=== PATIENT | male | born 1965 | race Caucasian/White ===

== ENCOUNTER 2016-12-06 06:53 | Emergency (ER) | payer OTHER ==
[~2016-12-06] VITALS: Ht 177.8 cm; Wt 76.8 kg
[2016-12-06 07:00] VITALS: TEMP 36.3; Ht 177.8 cm; Wt 76.8 kg
[2016-12-06] MEDS ORDERED: IBUP-1050 PO (07:06)
[2016-12-06] MEDS ORDERED: SODIUM CHLORIDE 0.9% 1000ML 1,000 ML IV STA (07:13)
[2016-12-06] MEDS ORDERED: SODIUM CHLORIDE 0.9% 500ML 500 ML IV STA (07:13)
--- NOTE | 2016-12-06 07:20 | EMERGENCY ROOM VISIT NOTE ---
History Report prepared by Maria Elenaibjulien: Travon Gomez Under the Supervision of: Dr. Maria R Logan M.D. First contact with patient: 07:00 Chief Complaint: FALL Stated Complaint: FALL/SYNCOPE History of Present Illness The patient is a 51 year old male prisoner who presents to the Emergency Room with complaints of a resolved episode of syncope that occurred earlier this morning. The patient states that he hasn't felt well for the past two days. This morning he got up to go to the bathroom. He was standing at the urinal when he passed out and hit his head on the ground. The patient was feeling dizzy prior to the episode, and was not experiencing palpitations. He remembers standing at the urinal, and the next thing he remembers is being on the ground with a guard standing over him. The patient hit the back of his head on the floor. He now complains of nausea. The patient experienced syncope years ago. He denies any recent drug use and is not much of a drinker. The patient is a smoker. He does not have a history of diabetes or heart disease. Source of History: patient Onset: this morning Position: other (global) Quality: other (syncope) Timing: resolved Associated Symptoms: + LOC, + nausea Review of Systems See HPI for pertinent positives & negatives. A total of 10 systems reviewed and were otherwise negative. Past Medical & Surgical Surgical Problems: (1) History of hernia repair Family History Diabetes mellitus FH: heart disease FH: lung disease FHx: cancer Hypertension Seizures Social History Smoking Status: Former Smoker Alcohol Use: none Marital Status: single Housing Status: other Occupation Status: employed Current/Historical Medications Scheduled Ibuprofen (Advil), 200 MG PO DAILY Ondasetron Odt (Zofran Odt), 4 MG SL Q6H Allergies Coded Allergies: Acetaminophen (Verified Adverse Reaction, Mild, nausea/vomiting, 12/06/16) Hydrocodone (Verified Adverse Reaction, Mild, nausea/vomiting, 12/06/16) Physical Exam Vital Signs Date Time Temp Pulse Resp B/P Pulse Ox O2 Delivery O2 Flow Rate FiO2 12/06/16 09:39 68 18 123/62 98 Room Air 12/06/16 09:07 66 12/06/16 08:52 57 18 115/64 96 Room Air 12/06/16 07:18 59 122/74 62 114/67 12/06/16 07:01 56 12/06/16 07:00 36.3 61 18 127/66 96 Room Air Physical Exam Vital signs reviewed. General: Well-appearing male, in no significant distress. Pale. HEENT: 0.5 cm laceration to the left occiput. No scleral icterus, PERRLA. Cervical collar in place. Cardiovascular: Regular rate and rhythm, no extra sounds. Pulmonary: Clear to auscultation bilaterally, normal work of breathing. Abdomen: Soft, nontender, nondistended, positive bowel sounds. Musculoskeletal: Atraumatic, no peripheral edema. Neurologic: Patient awake alert and oriented x 3, full strength in all 4 extremities. Cranial nerves 2 through 12 grossly intact. Skin: Warm, dry, no rash. Pale. Medical Decision & Procedures ER Provider Diagnostic Interpretation: X-ray results as stated below per my interpretation and radiologist interpretation. Other radiology results as stated below per my review and radiologist interpretation: SINGLE VIEW CHEST CLINICAL HISTORY: Fall. Syncope. FINDINGS: An AP, portable, upright chest radiograph is obtained. No prior studies are available for comparison at the time of dictation. The examination is degraded by portable technique and patient rotation. The cardiomediastinal silhouette is unremarkable. The lungs appear hyperinflated and hyperlucent with line the diaphragm suggesting emphysema. Nonspecific interstitial thickening is identified. No airspace consolidation, large pleural effusion, or pneumothorax is seen. The bony thorax is grossly intact. IMPRESSION: Findings suggest obstructive physiology. There is no acute cardiopulmonary abnormality. Electronically signed by: Jerry Sanon M.D. 12/06/2016 7:48 AM Dictated Date/Time: 12/06/2016 7:[address] SCAN OF THE BRAIN WITHOUT IV CONTRAST CLINICAL HISTORY: Head injury. COMPARISON STUDY: No priors. TECHNIQUE: Unenhanced axial CT scan of the brain is performed from the vertex to the skull base. Automated dose control exposure was utilized. FINDINGS: Brain parenchyma: The brain parenchyma is normal in appearance. There is no hemorrhage, mass effect, or evidence of acute territorial ischemia by CT criteria. Gallegos-white matter is preserved. No extra-axial fluid collection is seen. Ventricles, sulci, cisterns: Normal in configuration. Intracranial vasculature: The visualized intracranial vasculature at the skull base is normal in appearance. Calvarium: There is no depressed calvarial fracture. Soft tissues: There is a left posterior parietal scalp contusion. Sinuses and mastoids: There is trace mucosal thickening within the frontal and ethmoid sinuses. The remaining visualized paranasal sinuses are clear. The mastoid air cells are well pneumatized. Orbits: The bony orbits are grossly intact. IMPRESSION: There is no hemorrhage, mass effect, or evidence of acute territorial ischemia by CT criteria. Electronically signed by: Jerry Sanon M.D. 12/06/2016 8:07 AM Dictated Date/Time: 12/06/2016 8:[address] SCAN OF THE CERVICAL SPINE CLINICAL HISTORY: Fall. COMPARISON STUDY: No priors. TECHNIQUE: CT scan of the cervical spine is performed from the skull base to the upper thoracic spine. Images are reviewed in the axial, sagittal, and coronal planes. IV contrast was not administered for this examination. CT DOSE: 1081.80 mGy.cm FINDINGS: Skeletal structures: The skeletal structures are well mineralized. There is no evidence of fracture or subluxation involving the cervical spine. Vertebral body height and alignment are maintained. The odontoid process and lateral masses are intact. The atlantoaxial articulation is preserved. The spinous processes appear intact. Intervertebral discs: The disc spaces are well maintained. Central canal: Widely patent. Soft tissues: The prevertebral and paraspinous soft tissues are within normal limits. Calvarium: The visualized calvarium at the skull base appears intact. Brain parenchyma: Partially visualized brain parenchyma the skull base is within normal limits. Sinuses and mastoids: The visualized paranasal sinuses are clear. The mastoid air cells are well pneumatized. Lung apices: Mild emphysematous change is present at the apices. Apical lung parenchyma is otherwise clear as visualized. IMPRESSION: There is no evidence of fracture or subluxation involving the cervical spine. Electronically signed by: Jerry Sanon M.D. 12/06/2016 8:11 AM Dictated Date/Time: 12/06/2016 8:08 AM Laboratory Results 12/06/16 07:30 Red Blood Count 4.98, Mean Corpuscular Volume 84.7, Mean Corpuscular Hemoglobin 30.5, Mean Corpuscular Hemoglobin Concent 36.0, Mean Platelet Volume 9.7, Neutrophils (%) (Auto) 74.1, Lymphocytes (%) (Auto) 14.4, Monocytes (%) (Auto) 9.3, Eosinophils (%) (Auto) 1.6, Basophils (%) (Auto) 0.3, Neutrophils # (Auto) 7.59, Lymphocytes # (Auto) 1.47, Monocytes # (Auto) 0.95, Eosinophils # (Auto) 0.16, Basophils # (Auto) 0.03 12/06/16 07:30 Test 12/06/16 07:30 12/06/16 07:39 White Blood Count 10.23 K/uL (4.8-10.8) Red Blood Count 4.98 M/uL (4.7-6.1) Hemoglobin 15.2 g/dL (14.0-18.0) Hematocrit 42.2 % (42-52) Mean Corpuscular Volume 84.7 fL (80-100) Mean Corpuscular Hemoglobin 30.5 pg (25-34) Mean Corpuscular Hemoglobin Concent 36.0 g/dl (32-36) Platelet Count 240 K/uL (130-400) Mean Platelet Volume 9.7 fL (7.4-10.4) Neutrophils (%) (Auto) 74.1 % Lymphocytes (%) (Auto) 14.4 % Monocytes (%) (Auto) 9.3 % Eosinophils (%) (Auto) 1.6 % Basophils (%) (Auto) 0.3 % Neutrophils # (Auto) 7.59 K/uL (1.4-6.5) Lymphocytes # (Auto) 1.47 K/uL (1.2-3.4) Monocytes # (Auto) 0.95 K/uL (0.11-0.59) Eosinophils # (Auto) 0.16 K/uL (0-0.5) Basophils # (Auto) 0.03 K/uL (0-0.2) RDW Standard Deviation 37.7 fL (36.4-46.3) RDW Coefficient of Variation 12.3 % (11.5-14.5) Immature Granulocyte % (Auto) 0.3 % Immature Granulocyte # (Auto) 0.03 K/uL (0.00-0.02) Anion Gap 12.0 mmol/L (3-11) Est Creatinine Clear Calc Drug Dose 109.9 ml/min Estimated GFR () 118.9 Estimated GFR (Non- 102.6 BUN/Creatinine Ratio 21.1 (10-20) Calcium Level 9.1 mg/dl (8.5-10.1) Magnesium Level 1.9 mg/dl (1.8-2.4) Total Bilirubin 0.7 mg/dl (0.2-1) Direct Bilirubin 0.2 mg/dl (0-0.2) Aspartate Amino Transf (AST/SGOT) 12 U/L (15-37) Alanine Aminotransferase (ALT/SGPT) 18 U/L (12-78) Alkaline Phosphatase 118 U/L (45-117) Total Creatine Kinase 71 U/L (39-308) Creatine Kinase MB 0.5 ng/ml (0.5-3.6) Creatine Kinase MB Ratio 0.7 (0-3.0) Total Protein 7.2 gm/dl (6.4-8.2) Albumin 3.9 gm/dl (3.4-5.0) Bedside Troponin I 0.000 ng/ml (0-0.045) Laboratory results per my review. Medications Administered Medications (Trade) Dose Ordered Sig/Melissa Route Start Time Stop Time Status Last Admin Dose Admin Sodium Chloride 500 ml @ 999 mls/hr Q31M STAT IV 12/06/16 07:13 12/06/16 07:43 DC 12/06/16 07:13 999 MLS/HR Sodium Chloride (Nss 1000ml) 1,000 ml @ 125 mls/hr Q8H STAT IV 12/06/16 07:13 12/06/16 11:12 DC 12/06/16 07:13 125 MLS/HR Ondansetron HCl (Zofran Inj) 4 mg STK-MED ONCE .ROUTE 12/06/16 08:06 12/06/16 08:07 DC 12/06/16 08:06 4 MG Procedure Location: Scalp Total length: 0.5 cm. Complexity: Simple Verbal consent was obtained after the risks and benefits were explained, including but not limited to bleeding, scarring, infection, pain, and bone/ nerve damage. At this time, the risks of the procedure are less than the risks of NOT performing the procedure. A time out was taken and the correct patient and site identified. The scalp was prepped with betadine. The target area was anesthetized with 1% lidocaine without epinephrine. Copious irrigation was performed using saline. The skin was re-prepped with betadine, the hair cleared from the wound, and a sterile field set. The wound was explored for foreign bodies and none found. Debridement was not performed. The wound edges were approximated using 1 surgical staple in the standard fashion. Hemostasis and excellent approximation was achieved. Antibacterial ointment and a sterile dressing applied. Detailed wound care instructions and signs and symptoms of infection reviewed with the patient. No complications and the patient tolerated the procedure well. ECG Indication: syncope Rate (beats per minute): 57 Rhythm: sinus bradycardia Findings: no acute ischemic change, no ectopy ED Course 0710: Past medical records reviewed. The patient was evaluated in room B11b. A complete history and physical examination was performed. 0713: NSS 1000 ml @ 125 mls/hr, NSS 500 ml @ 999 mls/hr. 0932: Updated the patient. Found out he has been experiencing vomiting & diarrhea. 1000: Reassessed the patient. Discussed the findings with him. He verbalized understanding and agreement. The patient is ready for discharge. Medical Decision Etiologies such as vasovagal event, infection, hypoglycemia, electrolyte abnormalities, cardiac sources, intracerebral event, toxicologic, neurologic, as well as others were entertained. This patient was evaluated and appeared to be in no significant distress. Physical examination reveals a generally well male in some discomfort. He does appear to be slightly pale. He has a hematoma with a small laceration to the occiput of the head. Laboratory work reveals a stable H&H. EKG reveals a sinus bradycardia and vital signs have remained stable. Head CT is negative for acute intracranial abnormality. The patient has developed vomiting and diarrhea while in the emergency department. He has had some relief from IV hydration and Zofran. I discussed my findings with the patient. I suspect he has developed a viral gastroenteritis. The half-way guards state it has been passed through the half-way. The wound was approximated as above. He will be discharged to follow-up with the half-way physician and return to the ER for worsening of symptoms or any medical concerns. Impression Primary Impression: Vomiting and diarrhea Additional Impressions: Syncope and collapse Closed head injury Scalp laceration Scribe Attestation The scribe's documentation has been prepared under my direction and personally reviewed by me in its entirety. I confirm that the note above accurately reflects all work, treatment, procedures, and medical decision making performed by me. Departure Information Dispostion Home / Self-Care Prescriptions Ondasetron Odt (ZOFRAN ODT) 4 Mg Tab 4 MG SL Q6H for Nausea, #10 TAB Prov: Maria R Logan M.D. 12/06/16 Referrals Tyson DSOUZA (PCP) Forms HOME CARE DOCUMENTATION FORM, IMPORTANT VISIT INFORMATION Patient Instructions My [facility] Additional Instructions Diagnosis: Vomiting and diarrhea, syncope, closed head injury, scalp laceration Keep the scalp laceration clean, wash once a day with soap and water. Apply antibiotic ointment. Staple to be removed in 7-10 days. Drink plenty of clear fluids, advance diet as tolerated. BRAT diet: Bananas, rice, applesauce and toast. Zofran 4 mg ODT every 6 hours as needed for nausea. Follow-up with your physician for reevaluation within the next 24-48 hours. Return to the ER for worsening of symptoms or any medical concerns. Problem Qualifiers Additional Impressions: Closed head injury Encounter type: initial encounter Qualified Codes: S09.90XA - Unspecified injury of head, initial encounter Scalp laceration Encounter type: initial encounter Qualified Codes: S01.01XA - Laceration without foreign body of scalp, initial encounter
[2016-12-06 07:48] LABS: HEMATOCRIT 42.2 % (42-52); MEAN CELL VOLUME 84.7 fL (80-100); MEAN CORPUSCULAR HEMOGLOBIN 30.5 pg (25-34); MEAN PLATELET VOLUME 9.7 fL (7.4-10.4); PLATELET COUNT 240 K/uL (130-400); RED BLOOD COUNT 4.98 M/uL (4.7-6.1); WHITE BLOOD COUNT 10.23 K/uL (4.8-10.8)
--- NOTE | 2016-12-06 07:50 | DIAGNOSTIC IMAGING REPORT ---
SINGLE VIEW CHEST CLINICAL HISTORY: Fall. Syncope. FINDINGS: An AP, portable, upright chest radiograph is obtained. No prior studies are available for comparison at the time of dictation. The examination is degraded by portable technique and patient rotation. The cardiomediastinal silhouette is unremarkable. The lungs appear hyperinflated and hyperlucent with line the diaphragm suggesting emphysema. Nonspecific interstitial thickening is identified. No airspace consolidation, large pleural effusion, or pneumothorax is seen. The bony thorax is grossly intact. IMPRESSION: Findings suggest obstructive physiology. There is no acute cardiopulmonary abnormality. Electronically signed by: Jerry Sanon M.D. 12/06/2016 7:48 AM Dictated Date/Time: 12/06/2016 7:47 AM
[2016-12-06 08:05] LABS: BUN/CREATININE RATIO 21.1 (10-20); CALCIUM 9.1 mg/dl (8.5-10.1); CREATININE 0.83 mg/dl (0.60-1.40); MAGNESIUM 1.9 mg/dl (1.8-2.4); POTASSIUM 3.4 mmol/L (3.5-5.1)
[2016-12-06] MEDS ORDERED: ONDANSETRON INJ 2 MG/ML 2 ML VIAL ONE (08:06)
--- NOTE | 2016-12-06 08:09 | DIAGNOSTIC IMAGING REPORT ---
CT SCAN OF THE BRAIN WITHOUT IV CONTRAST CLINICAL HISTORY: Head injury. COMPARISON STUDY: No priors. TECHNIQUE: Unenhanced axial CT scan of the brain is performed from the vertex to the skull base. Automated dose control exposure was utilized. FINDINGS: Brain parenchyma: The brain parenchyma is normal in appearance. There is no hemorrhage, mass effect, or evidence of acute territorial ischemia by CT criteria. Gallegos-white matter is preserved. No extra-axial fluid collection is seen. Ventricles, sulci, cisterns: Normal in configuration. Intracranial vasculature: The visualized intracranial vasculature at the skull base is normal in appearance. Calvarium: There is no depressed calvarial fracture. Soft tissues: There is a left posterior parietal scalp contusion. Sinuses and mastoids: There is trace mucosal thickening within the frontal and ethmoid sinuses. The remaining visualized paranasal sinuses are clear. The mastoid air cells are well pneumatized. Orbits: The bony orbits are grossly intact. IMPRESSION: There is no hemorrhage, mass effect, or evidence of acute territorial ischemia by CT criteria. Electronically signed by: Jerry Sanon M.D. 12/06/2016 8:07 AM Dictated Date/Time: 12/06/2016 8:05 AM
[2016-12-06 08:10] LABS: CKMB/CK RATIO 0.7 (0-3.0)
[2016-12-06 08:12] LABS: BASO % 0.3 %; BASO ABS # 0.03 K/uL (0-0.2); COMPLETE YES; EOS % 1.6 %; IG% 0.3 %; LYMPH % 14.4 %; LYMPH ABS # 1.47 K/uL (1.2-3.4); MONO % 9.3 %; NEUT % 74.1 %
--- NOTE | 2016-12-06 08:13 | DIAGNOSTIC IMAGING REPORT ---
CT SCAN OF THE CERVICAL SPINE CLINICAL HISTORY: Fall. COMPARISON STUDY: No priors. TECHNIQUE: CT scan of the cervical spine is performed from the skull base to the upper thoracic spine. Images are reviewed in the axial, sagittal, and coronal planes. IV contrast was not administered for this examination. CT DOSE: 1081.80 mGy.cm FINDINGS: Skeletal structures: The skeletal structures are well mineralized. There is no evidence of fracture or subluxation involving the cervical spine. Vertebral body height and alignment are maintained. The odontoid process and lateral masses are intact. The atlantoaxial articulation is preserved. The spinous processes appear intact. Intervertebral discs: The disc spaces are well maintained. Central canal: Widely patent. Soft tissues: The prevertebral and paraspinous soft tissues are within normal limits. Calvarium: The visualized calvarium at the skull base appears intact. Brain parenchyma: Partially visualized brain parenchyma the skull base is within normal limits. Sinuses and mastoids: The visualized paranasal sinuses are clear. The mastoid air cells are well pneumatized. Lung apices: Mild emphysematous change is present at the apices. Apical lung parenchyma is otherwise clear as visualized. IMPRESSION: There is no evidence of fracture or subluxation involving the cervical spine. Electronically signed by: Jerry Sanon M.D. 12/06/2016 8:11 AM Dictated Date/Time: 12/06/2016 8:08 AM
[2016-12-06 09:39] VITALS: BP 123/62; PULSE 68; O2SAT 98
[2016-12-06] MEDS ORDERED: ONDA4TAB10 SL (09:52)
== END 2016-12-06 10:28 ==
LOC: EDBD 06:53 → C.EDB 06:55
DX: R11.2 Nausea with vomiting, unspecified (principal); S09.8XXA Other specified injuries of head, initial encounter; S01.01XA Laceration without foreign body of scalp, initial encounter; R19.7 Diarrhea, unspecified; R55 Syncope and collapse; R00.1 Bradycardia, unspecified; Z88.5 Allergy status to narcotic agent; Z88.6 Allergy status to analgesic agent; Z82.0 Family history of epilepsy and other diseases of the nervous system; Z82.49 Family history of ischemic heart disease and other diseases of the circulatory system; Z83.3 Family history of diabetes mellitus; Z83.6 Family history of other diseases of the respiratory system; W19.XXXA Unspecified fall, initial encounter; Y92.142 Bathroom in prison as the place of occurrence of the external cause

== ENCOUNTER 2016-12-13 09:38 | Emergency (ER) | payer OTHER ==
[~2016-12-13] VITALS: Ht 177.8 cm; Wt 81.4 kg
[~2016-12-13 09:38] MED LIST: IBUP-1050 PO; ONDA4TAB10 SL
[2016-12-13 09:40] VITALS: TEMP 36.8; Ht 177.8 cm; Wt 81.4 kg
--- NOTE | 2016-12-13 10:13 | EMERGENCY ROOM VISIT NOTE ---
History Report prepared by Kasey: Vj Gomes Under the Supervision of: Dr. Mary Prasad M.D. First contact with patient: 09:43 Chief Complaint: LEG PAIN,LEG INJURY Stated Complaint: R/O R LEG DVT History of Present Illness The patient is a 51 year old male who presents to the Emergency Room with complaints of persistent swollen right leg for the past week. The patient notes that a week ago he had a syncopal episode where he lost consciousness and hit his head. He presented to the hospital where they did an EKG and noted he probably had a viral infection. The patient notes that his leg has been bothering him since the fall and has been significantly swollen. He notes that the discomfort is worse in the morning when he wakes up and describes it as stiffness. He is able to ambulate normally. He denies pain, chest pain, or shortness of breath at this time. Source of History: patient Onset: for the past week Position: leg (right) Quality: other (stiffness) Timing: other (persistent) Modifying Factors (Worsening): other (in the morning) Associated Symptoms: No SOB, No chest pain Note: Denies: pain Review of Systems See HPI for pertinent positives & negatives. A total of 10 systems reviewed and were otherwise negative. Past Medical & Surgical Surgical Problems: (1) History of hernia repair Family History Diabetes mellitus FH: heart disease FH: lung disease FHx: cancer Hypertension Seizures Social History Smoking Status: Current Every Day Smoker Alcohol Use: none Marital Status: single Housing Status: other Occupation Status: employed Current/Historical Medications Scheduled PRN Ondansetron Hcl (Zofran), 4 MG PO TID PRN for Nausea Allergies Coded Allergies: Acetaminophen (Verified Adverse Reaction, Mild, nausea/vomiting, 12/06/16) Hydrocodone (Verified Adverse Reaction, Mild, nausea/vomiting, 12/06/16) Physical Exam Vital Signs Date Time Temp Pulse Resp B/P Pulse Ox O2 Delivery O2 Flow Rate FiO2 12/13/16 12:46 76 18 138/75 98 12/13/16 11:24 68 18 136/73 97 Room Air 12/13/16 09:40 36.8 65 18 146/90 98 Room Air Physical Exam CONSTITUTIONAL: No acute distress HEENT: No icterus, moist mucous membranes NECK: No meningismus, trachea is midline. CARDIOVASCULAR: Regular rate, normal perfusion RESPIRATORY: Unlabored breathing. Clear to auscultation. GASTROINTESTINAL: Non-tender GENITOURINARY: No flank tenderness MUSCULOSKELETAL: Full range of motion. Moderate edematous to right calf. NEUROLOGIC: No acute gross focal deficits. PSYCHIATRIC: Normal affect SKIN: Normal for ethnicity. Medical Decision & Procedures ER Provider Diagnostic Interpretation: Radiology results as stated below per my review and radiologist interpretation. ULTRASOUND RIGHT LOWER EXTREMITY VENOUS CLINICAL HISTORY: Right leg pain. COMPARISON STUDY: No priors. TECHNIQUE: Real-time, grayscale, and color Doppler sonography of the deep veins of the right lower extremity was performed from the inguinal crease to the calf. Compression and augmentation were utilized. FINDINGS: There is no sonographic evidence of deep venous thrombosis identified in the right lower extremity. The common femoral, superficial femoral, and popliteal veins are patent and normally compressible. The greater saphenous vein and the profunda femoris vein at the junction with the common femoral vein are clear. The visualized calf veins are patent. A complex popliteal cyst measures 3.8 x 1.2 x 2.5 cm. Complex fluid extends from this region into the posterior calf and measures up to 18 cm in length. IMPRESSION: 1. There is no sonographic evidence of deep venous thrombosis identified in the right lower extremity. 2. Findings suggest a ruptured popliteal cyst extends into the posterior calf. This could also represent a hematoma. Clinical correlation will be required. Clinical follow-up to resolution is recommended. Electronically signed by: Jerry Sanon M.D. 12/13/2016 10:36 AM Dictated Date/Time: 12/13/2016 10:35 AM RIGHT TIBIA/FIBULA 2 VIEWS ROUTINE CLINICAL HISTORY: edema from [facility] Right pain COMPARISON: None. DISCUSSION: The bones and joint spaces appear intact. There is no evidence of fracture, dislocation or bony disease. There is no evidence for soft tissue swelling. IMPRESSION: Negative study. Electronically signed by: Diony Guerra M.D. 12/13/2016 11:52 AM Dictated Date/Time: 12/13/2016 11:52 AM Laboratory Results 12/13/16 11:05 Red Blood Count 4.41, Mean Corpuscular Volume 86.8, Mean Corpuscular Hemoglobin 30.6, Mean Corpuscular Hemoglobin Concent 35.2, Mean Platelet Volume 8.8, Neutrophils (%) (Auto) 76.8, Lymphocytes (%) (Auto) 13.7, Monocytes (%) (Auto) 8.0, Eosinophils (%) (Auto) 1.3, Basophils (%) (Auto) 0.2, Neutrophils # (Auto) 4.72, Lymphocytes # (Auto) 0.84, Monocytes # (Auto) 0.49, Eosinophils # (Auto) 0.08, Basophils # (Auto) 0.01 12/13/16 11:05 Test 12/13/16 11:05 12/13/16 11:10 White Blood Count 6.14 K/uL (4.8-10.8) Red Blood Count 4.41 M/uL (4.7-6.1) Hemoglobin 13.5 g/dL (14.0-18.0) Hematocrit 38.3 % (42-52) Mean Corpuscular Volume 86.8 fL (80-100) Mean Corpuscular Hemoglobin 30.6 pg (25-34) Mean Corpuscular Hemoglobin Concent 35.2 g/dl (32-36) Platelet Count 339 K/uL (130-400) Mean Platelet Volume 8.8 fL (7.4-10.4) Neutrophils (%) (Auto) 76.8 % Lymphocytes (%) (Auto) 13.7 % Monocytes (%) (Auto) 8.0 % Eosinophils (%) (Auto) 1.3 % Basophils (%) (Auto) 0.2 % Neutrophils # (Auto) 4.72 K/uL (1.4-6.5) Lymphocytes # (Auto) 0.84 K/uL (1.2-3.4) Monocytes # (Auto) 0.49 K/uL (0.11-0.59) Eosinophils # (Auto) 0.08 K/uL (0-0.5) Basophils # (Auto) 0.01 K/uL (0-0.2) RDW Standard Deviation 39.5 fL (36.4-46.3) RDW Coefficient of Variation 12.3 % (11.5-14.5) Immature Granulocyte % (Auto) 0.0 % Immature Granulocyte # (Auto) 0.00 K/uL (0.00-0.02) Anion Gap 9.0 mmol/L (3-11) Est Creatinine Clear Calc Drug Dose 107.4 ml/min Estimated GFR () 117.8 Estimated GFR (Non- 101.6 BUN/Creatinine Ratio 10.9 (10-20) Calcium Level 9.7 mg/dl (8.5-10.1) Total Creatine Kinase 78 U/L (39-308) Procalcitonin < 0.05 ng/mL (0-0.5) Urine Color YELLOW Urine Appearance CLEAR (CLEAR) Urine pH 8.0 (4.5-7.5) Urine Specific [place] 1.014 (1.000-1.030) Urine Protein NEG (NEG) Urine Glucose (UA) NEG (NEG) Urine Ketones NEG (NEG) Urine Occult Blood NEG (NEG) Urine Nitrite NEG (NEG) Urine Bilirubin NEG (NEG) Urine Urobilinogen NEG (NEG) Urine Leukocyte Esterase NEG (NEG) Labs reviewed by ED physician. ED Course 0954: Past medical records reviewed. The patient was evaluated in room B4. A complete history and physical examination was performed. 1133: Upon reexamination the patient is resting comfortably. I discussed results and treatment plan with the patient. He verbalizes agreement and understanding. The patient is ready for discharge. Medical Decision Differential diagnoses include DVT. Patient presents from just his facility for examination of swollen right leg. He notes he was evaluated in the emergency room for episode of syncope recently with negative imaging and laboratory studies. He notes his leg became twisted during that episode of syncope and his right leg has had swelling since that time. Sent to ED to rule out PE. ED evaluation revealed burst popliteal cyst. Screening labs were negative. Patient discharged appearing comfortable and in no distress. Impression Primary Impression: Popliteal cyst Scribe Attestation The scribe's documentation has been prepared under my direction and personally reviewed by me in its entirety. I confirm that the note above accurately reflects all work, treatment, procedures, and medical decision making performed by me. Departure Information Dispostion Home / Self-Care Referrals Tyson DSOUZA (PCP) Forms HOME CARE DOCUMENTATION FORM, IMPORTANT VISIT INFORMATION Patient Instructions ED [facility] P[facility]
--- NOTE | 2016-12-13 10:38 | DIAGNOSTIC IMAGING REPORT ---
ULTRASOUND RIGHT LOWER EXTREMITY VENOUS CLINICAL HISTORY: Right leg pain. COMPARISON STUDY: No priors. TECHNIQUE: Real-time, grayscale, and color Doppler sonography of the deep veins of the right lower extremity was performed from the inguinal crease to the calf. Compression and augmentation were utilized. FINDINGS: There is no sonographic evidence of deep venous thrombosis identified in the right lower extremity. The common femoral, superficial femoral, and popliteal veins are patent and normally compressible. The greater saphenous vein and the profunda femoris vein at the junction with the common femoral vein are clear. The visualized calf veins are patent. A complex popliteal cyst measures 3.8 x 1.2 x 2.5 cm. Complex fluid extends from this region into the posterior calf and measures up to 18 cm in length. IMPRESSION: 1. There is no sonographic evidence of deep venous thrombosis identified in the right lower extremity. 2. Findings suggest a ruptured popliteal cyst extends into the posterior calf. This could also represent a hematoma. Clinical correlation will be required. Clinical follow-up to resolution is recommended. Electronically signed by: Jerry Sanon M.D. 12/13/2016 10:36 AM Dictated Date/Time: 12/13/2016 10:35 AM
[2016-12-13] MEDS ORDERED: ONDA4TAB46 PO (11:05)
[2016-12-13 11:21] LABS: BASO % 0.2 %; BASO ABS # 0.01 K/uL (0-0.2); COMPLETE YES; EOS % 1.3 %; HEMATOCRIT 38.3 % (42-52); LYMPH % 13.7 %; LYMPH ABS # 0.84 K/uL (1.2-3.4); MEAN CELL VOLUME 86.8 fL (80-100); MEAN CORPUSCULAR HEMOGLOBIN 30.6 pg (25-34); MEAN CORPUSCULAR HGB CONC 35.2 g/dl (32-36); MEAN PLATELET VOLUME 8.8 fL (7.4-10.4); NEUT % 76.8 %; PLATELET COUNT 339 K/uL (130-400); RED BLOOD COUNT 4.41 M/uL (4.7-6.1); WHITE BLOOD COUNT 6.14 K/uL (4.8-10.8)
[2016-12-13 11:24] LABS: URINE APPEARANCE CLEAR (CLEAR); URINE BILIRUBIN NEG (NEG); URINE COLOR YELLOW; URINE NITRITE NEG (NEG); URINE SPECIFIC GRAVITY 1.014 (1.000-1.030); UROBILINOGEN NEG (NEG)
[2016-12-13 11:28] LABS: MANUAL MICROSCOPIC REQUIRED? NO; REVIEW REQ? NO
[2016-12-13 11:38] LABS: BUN/CREATININE RATIO 10.9 (10-20); CALCIUM 9.7 mg/dl (8.5-10.1); CREATININE 0.85 mg/dl (0.60-1.40); POTASSIUM 4.3 mmol/L (3.5-5.1)
--- NOTE | 2016-12-13 11:53 | DIAGNOSTIC IMAGING REPORT ---
RIGHT TIBIA/FIBULA 2 VIEWS ROUTINE CLINICAL HISTORY: edema from [facility] Right pain COMPARISON: None. DISCUSSION: The bones and joint spaces appear intact. There is no evidence of fracture, dislocation or bony disease. There is no evidence for soft tissue swelling. IMPRESSION: Negative study. Electronically signed by: Diony Guerra M.D. 12/13/2016 11:52 AM Dictated Date/Time: 12/13/2016 11:52 AM
[2016-12-13 12:46] VITALS: BP 138/75; PULSE 76; O2SAT 98
== END 2016-12-13 12:48 | disposition home or self-care (01) ==
LOC: C.EDB 09:39
DX: M71.21 Synovial cyst of popliteal space [Baker], right knee (principal)